=== PATIENT | male | born 1945 | race Native Hawaiian/Other Pacific Islander ===

== ENCOUNTER 2019-04-12 17:39 | Emergency (ER) | payer OTHER ==
[~2019-04-12] VITALS: Ht 177.8 cm; Wt 95.3 kg
[2019-04-12 17:39] VITALS: BP 142/77; TEMP 97.7
[2019-04-12 18:43] LABS: PLATELET COUNT 217 K/uL (142-355)
[2019-04-12 18:51] LABS: POTASSIUM 3.7 mmol/L (3.6-5.2)
[2019-04-12] MEDS ORDERED: ASPIRIN81 M2 PO (19:42)
[2019-04-12] MEDS ORDERED: BISOPROL FUM10 MG PO (19:43)
[2019-04-12] MEDS ORDERED: CENTRUM SILVER PO (19:43)
[2019-04-12] MEDS ORDERED: DONE5TAB PO (19:44)
[2019-04-12] MEDS ORDERED: DIGITEK0.125 MG PO (19:44)
[2019-04-12] MEDS ORDERED: FINASTERIDE5 MG PO (19:45)
[2019-04-12] MEDS ORDERED: GLIP10TA55 PO (19:45)
[2019-04-12] MEDS ORDERED: TAMS0.4C PO (19:45)
[2019-04-12] MEDS ORDERED: JANUVIA100 MG PO (19:46)
[2019-04-12] MEDS ORDERED: KLOR-CON M1010 MEQ PO (19:46)
[2019-04-12] MEDS ORDERED: LIPITOR10 MG PO (19:47)
[2019-04-12] MEDS ORDERED: FURO20TA67 PO (19:47)
[2019-04-12] MEDS ORDERED: LISI5TAB10 PO (19:47)
[2019-04-12] MEDS ORDERED: NABUMETONE500 MG PO (19:48)
[2019-04-12] MEDS ORDERED: NAMENDA5 MG PO (19:48)
[2019-04-12] MEDS ORDERED: RISP0.25 PO (19:49)
[2019-04-12] MEDS ORDERED: RISP1TAB PO ×2 (22:08→22:11)
[2019-04-12] MEDS ORDERED: TRAZ100T PO (22:09)
[2019-04-12] MEDS ORDERED: RISP0.5T2 PO (22:10)
[2019-04-12] MEDS ORDERED: METO-837 PO (22:11)
[2019-04-12] MEDS ORDERED: IBUPROFEN 200200 MG PO (22:12)
[2019-04-12] MEDS ORDERED: DIVA125C PO (22:13)
[2019-04-12] MEDS ORDERED: LORA0.5T17 PO (22:14)
[2019-04-12] MEDS ORDERED: ELIQUIS5 MG PO (22:14)
== END 2019-04-12 20:03 | disposition other institution (70) ==
LOC: ED 17:49
PROVIDERS: Emergency Medicine
DX: I48.91 Unspecified atrial fibrillation (principal); F03.91 Unspecified dementia, unspecified severity, with behavioral disturbance; Z91.83 Wandering in diseases classified elsewhere; Z04.6 Encounter for general psychiatric examination, requested by authority
CPT/HCPCS: 36415; 80053; 85027; 93005; 99285